=== PATIENT | male | born 1955 | race Two or more races ===

== ENCOUNTER 2024-08-19 06:10 | Day surgery (SDC) | payer OTHER ==
[2024-08-12 15:23] VITALS: BP 160/71
[~2024-08-19] VITALS: Ht 167.6 cm; Wt 79.8 kg
[~2024-08-19 06:10] MED LIST: ATORVASTATIN CA10 MG PO; METFORMIN HCL500 M4 PO; ZESTRIL10 M1 PO
[2024-08-19 10:04] LABS: RH POSITIVE
[2024-08-19] MEDS ORDERED: MORPHINE SULFATE 4 MG/ML VIAL IV ONE ×3 (18:25→20:20)
[2024-08-19] MEDS ORDERED: TRANEXAMIC ACID 100MG/1ML (1000MG) AMPUL IV ONE (18:45)
[2024-08-19] MEDS ORDERED: CEFAZOLIN SODIUM 1,000 MG VIAL IV ONE (18:45)
[2024-08-19] MEDS ORDERED: BUPIVACAINE HCL 30 ML VIAL IJ ONE (18:45)
[2024-08-19] MEDS ORDERED: KETOROLAC TROMETHAMINE 60 MG VIAL IM ONE (18:45)
[2024-08-19] MEDS ORDERED: LIDOCAINE HCL 1%/EPINEPHRINE 20ML VIAL IJ ONE (18:45)
[2024-08-19] MEDS ORDERED: ALEVE220 M1 PO (20:52)
[2024-08-19] MEDS ORDERED: PERCOCET 5-3251 EACH PO (20:52)
[2024-08-19] MEDS ORDERED: DUI500 PO (20:52)
== END 2024-08-19 21:45 | disposition home or self-care (01) ==
LOC: CIR.AMB 06:10
PROVIDERS: ATTEND Orthopaedic Surgery
DX: M75.112 Incomplete rotator cuff tear or rupture of left shoulder, not specified as traumatic (principal); M19.012 Primary osteoarthritis, left shoulder
CPT/HCPCS: 23472; 20902; L8699